=== PATIENT | female | born 1975 | race Caucasian/White ===

== ENCOUNTER 2019-02-11 09:29 | Observation (INO) ==
[2019-02-11] MEDS ORDERED: Isovue-370 500 ML BOTTLE IVP ONE (10:01)
[2019-02-11] MEDS ORDERED: Ketorolac 15 MG/ML VIAL IVP ONE (10:02)
[2019-02-11 10:55] LABS: Basophils # 0.1 K/mcL (0.0-0.2); Basophils % 0.8 %; Eosinophils # 0.2 K/mcL (0.0-0.6); Eosinophils % 2.1 %; Hematocrit 38.7 % (35.3-44.9); Hemoglobin 13.2 g/dL (11.5-15.4); Immature Granulocytes % 0.5 % (0-4); Lymphocytes % 36.7 %; Mean Corpuscular HGB Conc 34.1 g/dL (31.6-35.5); Mean Corpuscular Hemoglobin 28.3 pg (28.0-33.3); Mean Platelet Volume 9.8 fL (9.4-12.4); Monocytes % 9.5 %; Neutrophils # 5.4 K/mcL (1.6-8.9); Platelet Count 443 K/mcL (140-400); Red Blood Count 4.66 M/mcL (3.82-4.97); Red Cell Distribution Width 14.7 % (11.5-14.5); Segmented Neutrophils % 50.4 %; White Blood Count 10.8 K/mcL (4.3-11.1)
[2019-02-11 11:07] LABS: BUN/Creatinine Ratio 14 (6-26); Blood Urea Nitrogen 10 mg/dL (6-20); C-Reactive Protein 5 mg/L (Less than 10); Calcium 9.7 mg/dL (8.6-10.3); Carbon Dioxide 26 mEq/L (23-29); Chloride 103 mEq/L (98-107); Glucose 79 mg/dL (70-105); Osmolality,Calculated 274 (280-300); Potassium 4.2 mEq/L (3.5-5.1); Sodium 133 mEq/L (136-145); eGFR For African Americans > 60 (> 60); eGFR For Non-African Americans > 60 (> 60)
[2019-02-11] MEDS ORDERED: ceFAZolin 1,000 MG in Water for inj. (sterile) 10 ML IVP ONE (14:14)
[2019-02-11] MEDS ORDERED: Naloxone 0.4 MG/ML INJ IVP PRN (16:05)
[2019-02-11] MEDS ORDERED: Acetaminophen IV 1,000 MG/100 ML INFUS..BTL IVPB ONE (19:59)
[2019-02-12 04:48] LABS: Basophils # 0.1 K/mcL (0.0-0.2); Basophils % 0.8 %; Eosinophils # 0.2 K/mcL (0.0-0.6); Eosinophils % 2.4 %; Hematocrit 35.5 % (35.3-44.9); Hemoglobin 12.3 g/dL (11.5-15.4); Immature Granulocytes % 0.2 % (0-4); Lymphocytes # 3.5 K/mcL (0.6-4.6); Lymphocytes % 41.8 %; Mean Corpuscular HGB Conc 34.6 g/dL (31.6-35.5); Mean Corpuscular Hemoglobin 28.5 pg (28.0-33.3); Mean Corpuscular Volume 82.2 fL (83.0-100.0); Mean Platelet Volume 9.7 fL (9.4-12.4); Monocytes # 0.9 K/mcL (0.0-1.3); Monocytes % 10.8 %; Neutrophils # 3.7 K/mcL (1.6-8.9); Platelet Count 374 K/mcL (140-400); Red Blood Count 4.32 M/mcL (3.82-4.97); Red Cell Distribution Width 14.8 % (11.5-14.5); White Blood Count 8.4 K/mcL (4.3-11.1)
[2019-02-12] MEDS ORDERED: Acetaminophen IV 1,000 MG/100 ML INFUS..BTL IVPB ONE (05:19)
[2019-02-12] MEDS: *HR* Enoxaparin 40 MG/0.4 ML SYRINGE SQ SCH (05:31)
[2019-02-12] MEDS ORDERED: hydrOXYzine pamoate 25 MG CAPSULE PO PRN (13:29)
[2019-02-12] MEDS: Lisinopril 20 MG TABLET PO SCH (13:58)
[2019-02-12] MEDS: BuPROPion XL (24 HR) 150 MG TABLET PO SCH (13:58)
[2019-02-12] MEDS ORDERED: Aspirin 325 MG TABLET PO ONE (16:45)
[2019-02-12] MEDS: Acetaminophen IV 1,000 MG/100 ML INFUS..BTL IVPB PRN (17:19)
[2019-02-12] MEDS ORDERED: Aspirin Enteric Coated 81 MG Tablet PO SCH (17:45)
[2019-02-12] MEDS ORDERED: traMADol 50 MG TABLET PO ONE (19:42)
[2019-02-13] MEDS: Acetaminophen IV 1,000 MG/100 ML INFUS..BTL IVPB PRN ×2 (04:34→10:34)
[2019-02-13] MEDS: *HR* Enoxaparin 40 MG/0.4 ML SYRINGE SQ SCH (05:40)
[2019-02-13] MEDS ORDERED: Aspirin 81 MG TAB.CHEW PO SCH (09:00)
[2019-02-13] MEDS: BuPROPion XL (24 HR) 150 MG TABLET PO SCH (09:05)
[2019-02-13] MEDS: Lisinopril 20 MG TABLET PO SCH (09:05)
[2019-02-13 11:39] VITALS: BP 104/66
== END 2019-02-13 13:17 | disposition home or self-care (01) ==
LOC: EMEROOARM 09:29 → 3ANU 09:29 → SUATTDRO 14:42 → 3ANU 15:15
PROVIDERS: ADMIT Internal Medicine; ATTEND Internal Medicine